=== PATIENT | female | born 1995 | race Caucasian/White ===

== ENCOUNTER 2021-10-12 22:40 | Outpatient (CLI) | payer OTHER ==
[2021-10-12] MEDS ORDERED: PRENATAL TABLE1 EAC4 (23:59)
== END 2021-10-13 09:52 | disposition home or self-care (01) ==
LOC: OBS/DEL 22:40
PROVIDERS: ATTEND Obstetrics & Gynecology
DX: O26.893 Other specified pregnancy related conditions, third trimester (principal); Z3A.32 32 weeks gestation of pregnancy; R19.7 Diarrhea, unspecified; R51.9 Headache, unspecified; R10.9 Unspecified abdominal pain

== ENCOUNTER 2021-11-09 11:20 | Inpatient (IN) | payer OTHER ==
[~2021-11-09] VITALS: Ht 165.1 cm; Wt 75.3 kg
[~2021-11-09 11:20] MED LIST: PRENATAL TABLE1 EAC4
[2021-12-07] MEDS ORDERED: CONCEPT OB CAP1 EACH (09:57)
== END 2021-12-08 11:23 | disposition home or self-care (01) | DRG 807 ==
LOC: OB/GYN 12-02 11:20 → LDR 12-06 09:06 → OB/GYN 12-06 14:43
PROVIDERS: ADMIT Obstetrics & Gynecology; ATTEND Obstetrics & Gynecology
PROC: 10E0XZZ Delivery of Products of Conception, External Approach (ICD-10-PCS; principal; 2021-12-06)
PROC: 0KQM0ZZ Repair Perineum Muscle, Open Approach (ICD-10-PCS; 2021-12-06)
PROC: 4A1HXCZ Monitoring of Products of Conception, Cardiac Rate, External Approach (ICD-10-PCS; 2021-12-06)
DX: O70.1 Second degree perineal laceration during delivery (principal); Z37.0 Single live birth; Z3A.40 40 weeks gestation of pregnancy; Z20.822 Contact with and (suspected) exposure to COVID-19

== ENCOUNTER 2021-11-25 14:48 | Outpatient (CLI) | payer OTHER | END 2021-11-25 15:28 | disposition home or self-care (01) | LOC: NST 14:48 | PROVIDERS: ATTEND Obstetrics & Gynecology Maternal & Fetal Medicine | DX: Z34.83 Encounter for supervision of other normal pregnancy, third trimester (principal) ==

== ENCOUNTER 2021-12-01 09:13 | Outpatient (CLI) | payer OTHER | END 2021-12-01 09:58 | disposition home or self-care (01) | LOC: NST 09:13 | PROVIDERS: ATTEND Obstetrics & Gynecology Maternal & Fetal Medicine | DX: Z34.83 Encounter for supervision of other normal pregnancy, third trimester (principal) ==

== ENCOUNTER 2023-11-19 18:07 | Emergency (ER) | payer OTHER ==
[~2023-11-19] VITALS: Ht 165.1 cm; Wt 53.5 kg
[~2023-11-19 18:07] MED LIST changes: +CONCEPT OB CAP1 EACH
[2023-11-19] MEDS ORDERED: FAMOtidine 10 MG/ML (4ML VIAL) IV ONE (19:15)
[2023-11-19] MEDS ORDERED: BUTALB/ACETAMINOPHEN/CAFFEINE 1 TAB TABLET PO ONE (19:15)
[2023-11-19] MEDS ORDERED: BUTALB-ACETAMI1 EACH PO (19:57)
[2023-11-19] MEDS ORDERED: PEPCID AC20 MG PO (19:57)
== END 2023-11-19 20:26 | disposition home or self-care (01) ==
LOC: ER 18:09
DX: G43.909 Migraine, unspecified, not intractable, without status migrainosus (principal); Z88.6 Allergy status to analgesic agent; Z88.8 Allergy status to other drugs, medicaments and biological substances

== ENCOUNTER 2023-11-22 12:33 | Emergency (ER) | payer OTHER ==
[~2023-11-22] VITALS: Ht 165.1 cm; Wt 54.0 kg
[~2023-11-22 12:33] MED LIST changes: +BUTALB-ACETAMI1 EACH PO; +PEPCID AC20 MG PO
[2023-11-22] MEDS ORDERED: SUMATRIPTAN SUCCINATE 6 MG/0.5 ML VIAL SUBCUTANEO ONE (13:15)
[2023-11-22] MEDS ORDERED: BUTALB/ACETAMINOPHEN/CAFFEINE 1 TAB TABLET PO ONE (13:15)
[2023-11-22 13:56] LABS: HEMATOCRIT 27.6 % (36.0-45.00); HEMOGLOBIN 8.6 g/dL (12.0-15.00); MEAN CELL VOLUME 62.5 fL (80.00-100.00); MEAN CORPUSCULAR HEMOGLOBIN 19.4 pg (27.00-32.0); PLATELET COUNT 484 K/uL (150-450); RED BLOOD COUNT 4.42 M/uL (4.00-6.00); RED CELL DISTRIBUTION WIDTH 17.2 % (11.5-14.5)
[2023-11-22 14:26] LABS: ALBUMIN 4.1 gm/dL (3.4-5.0); BILIRUBIN TOTAL 0.81 mg/dL (0.3-1.2); CALCIUM 9.2 mg/dL (8.5-10.1); CREATININE SERUM 0.66 mg/dL (0.55-1.02); GFR 107.43; GLOBULINA 4.2 G/DL (2.4-3.5); POTASSIUM 3.58 mEq/L (3.5-5.1); TOTAL PROTEIN 8.3 gm/dL (6.4-8.2)
== END 2023-11-22 15:54 | disposition home or self-care (01) ==
LOC: ER 12:34
PROVIDERS: General Practice
DX: D64.9 Anemia, unspecified (principal); R51.9 Headache, unspecified; Z88.6 Allergy status to analgesic agent

== ENCOUNTER 2024-04-08 09:39 | Emergency (ER) | payer OTHER ==
[~2024-04-08] VITALS: Ht 165.1 cm; Wt 53.5 kg
[2024-04-08 11:42] LABS: HEMATOCRIT 27.8 % (36.0-45.00); MEAN CORPUSCULAR HGB CONC 30.9 g/dl (32.0-36.0); PLATELET COUNT 295 K/uL (150-450); RED BLOOD COUNT 4.52 M/uL (4.00-6.00); RED CELL DISTRIBUTION WIDTH 18.4 % (11.5-14.5)
[2024-04-08 11:44] LABS: HEMOGLOBIN 8.6 g/dL (12.0-15.00); MEAN CELL VOLUME 61.6 fL (80.00-100.00)
== END 2024-04-08 13:40 | disposition home or self-care (01) ==
LOC: ER 09:41
PROVIDERS: General Practice
DX: B34.9 Viral infection, unspecified (principal); D64.9 Anemia, unspecified; J00 Acute nasopharyngitis [common cold]; Z20.822 Contact with and (suspected) exposure to COVID-19; Z88.6 Allergy status to analgesic agent